=== PATIENT | female | born 1985 | race Hispanic/Latino ===

== ENCOUNTER 2017-03-22 21:29 | Emergency (ER) | payer OTHER ==
[2017-03-22 21:44] VITALS: BP 122/85; PULSE 70; RESP 16; TEMP 98.3; O2SAT 99
--- NOTE | 2017-03-22 21:53 | ED PDOC ---
HPI: Trauma/Fall - HPI Time Seen by Provider: 03/22/17 21:45 Chief Complaint (Nursing): Abnormal Skin Integrity Chief Complaint (Provider): Hand Pain History Per: Patient History/Exam Limitations: no limitations Onset/Duration Of Symptoms: Mins Pain Scale Rating Of: 10 Associated Symptoms: denies: Dizziness, LOC Additional Complaint(s): Yeny Tan, a 31 year old female, presents to the ED with a fall type injury. The patient states that she was walking when she tripped and fell forward onto her chest. She reports that she believes that she jammed her hand because she is now experiencing some left hand pain. Patient is unsure of her tetanus status. PMD: Joana Bunn Past Medical History Reviewed: Historical Data, Nursing Documentation, Vital Signs Vital Signs: Last Vital Signs Temp 98.3 F 03/22/17 21:41 Pulse 70 03/22/17 21:41 Resp 16 03/22/17 21:41 BP 122/85 03/22/17 21:41 Pulse Ox 99 03/22/17 21:59 - Medical History PMH: No Chronic Diseases - Surgical History Surgical History: No Surg Hx - Family History Family History: States: Unknown Family Hx - Social History Current smoker - smoking cessation education provided: No Ex-Smoker (has not smoked in the last 12 months): No Alcohol: Social Drugs: Denies - Immunization History Hx Tetanus Toxoid Vaccination: No - Allergies Allergies/Adverse Reactions: Allergies Allergy/AdvReac Type Severity Reaction Status Date / Time pecan nut Allergy URTICARIA Verified 03/22/17 21:43 Penicillins Allergy RASH Verified 03/22/17 21:43 Review of Systems ROS Statement: Except As Marked, All Systems Reviewed And Found Negative Musculoskeletal: Positive for: Hand Pain (left hand pain) Physical Exam - Reviewed Nursing Documentation Reviewed: Yes Vital Signs Reviewed: Yes - Physical Exam Appears: Positive for: Non-toxic (2 superficial linear abrasions on chin), No Acute Distress Head Exam: Positive for: ATRAUMATIC, NORMAL INSPECTION, NORMOCEPHALIC Skin: Positive for: Normal Color, Warm, Dry. Negative for: Rash Eye Exam: Positive for: Normal appearance, EOMI, PERRL. Negative for: Nystagmus Neck: Positive for: Normal, Painless ROM, Supple Cardiovascular/Chest: Positive for: Regular Rate, Rhythm, Chest Non Tender. Negative for: Tachycardia Respiratory: Positive for: Normal Breath Sounds. Negative for: Wheezing, Respiratory Distress Neurologic/Psych: Positive for: Alert, Oriented, Gait - ECG O2 Sat by Pulse Oximetry: 99 (RA) Pulse Ox Interpretation: Normal Medical Decision Making Medical Decision Makin Initial Impression 31 y/o female presenting with left hand pain Initial Plan: * Reevaluation Scribe Attestation Documented by Zuleika Vela acting as a scribe for Bessie Ortiz PA-C. Scribe Attestation All medical record entries made by the Scribe were at my direction and personally dictated by me. I have reviewed the chart and agree that the record accurately reflects my personal performance of the history, physical exam, medical decision making, and the department course for this patient. I have also personally directed, reviewed, and agree with the discharge instructions and disposition. Disposition - Clinical Impression Clinical Impression: Finger fracture, left, Tetanus toxoid vaccination administered at current visit , Skin foreign body, Abrasion - Disposition Referrals: Eveline Brown MD [Staff Provider] - Disposition: Routine/Home Disposition Time: 23:39 Condition: GOOD Instructions: Finger Fracture (ED) Forms: [employer] Connect (Polish), [facility] ED School/Work Excuse
[2017-03-22] MEDS ORDERED: Lidocaine 1% (10 ml) Inj INFIL STA (22:12)
[2017-03-22] MEDS ORDERED: Lidocaine 1% Inj (20ml) ONE (22:21)
--- NOTE | 2017-03-23 14:01 | RAD ---
PROCEDURE: Left Hand Radiographs. HISTORY: fall, hand pain COMPARISON: None. FINDINGS: BONES: There is a linear intra-articular longitudinally oriented fracture of the distal 4th proximal phalanx JOINTS: Normal. No osteoarthritic changes. SOFT TISSUES: Normal. OTHER FINDINGS: None. IMPRESSION: There is a linear intra-articular longitudinally oriented fracture of the distal 4th proximal phalanx
== END 2017-03-22 23:49 | disposition home or self-care (01) ==
LOC: H.ER 21:29
DX: S62.609A Fracture of unspecified phalanx of unspecified finger, initial encounter for closed fracture (principal); S00.81XA Abrasion of other part of head, initial encounter; W19.XXXA Unspecified fall, initial encounter; Y92.89 Other specified places as the place of occurrence of the external cause